=== PATIENT | male | born 1985 | race African-American/Black ===

== ENCOUNTER 2017-05-12 09:04 | Emergency (ER) | payer OTHER ==
[~2017-05-12] VITALS: Wt 122.7 kg
[2017-05-12] MEDS ORDERED: IBUP-1542 PO (10:32)
[2017-05-12] MEDS ORDERED: CYCL5TAB PO (10:32)
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
== END 2017-05-12 10:49 | disposition home or self-care (01) ==
LOC: FTE 09:04
DX: S19.9XXA Unspecified injury of neck, initial encounter (principal); I10 Essential (primary) hypertension; V49.50XA Passenger injured in collision with unspecified motor vehicles in traffic accident, initial encounter
CPT/HCPCS: 99283